=== PATIENT | male | born 1965 | race American Indian/Alaskan Native ===

== ENCOUNTER 2016-06-01 16:10 | Emergency (ER) | payer SELFPAY ==
[2016-06-01 16:39] VITALS: BP 156/105
[2016-06-01 18:09] LABS: Bilirubin,Urine NEG (Negative); Blood,Urine NEG (Negative); Ketones,Urine NEG (Negative); Leukocyte Esterase,Urine NEG (Negative); Mucus,Urine 1+ /HPF; Nitrite,Urine NEG (Negative); Protein,Urine <15 mg/dL mg/dL (Negative); Urobilinogen,Urine < 2.0 mg/dL (<2.0)
[2016-06-01] MEDS ORDERED: TYLENOL PO ONE (18:14)
--- NOTE | 2016-06-01 18:40 | Emergency Department Report ---
ED General Adult HPI - General Chief complaint: Back Pain/Injury Stated complaint: KIDNEY/BACK PAIN Time Seen by Provider: 06/01/16 17:36 Source: patient Mode of arrival: Ambulatory Limitations: No Limitations - History of Present Illness Initial comments: 50 year old male presents with right flank area pain for about a month. denies injury. states it is an aching pain. dysuria, NV, abdominal pain. Severity scale (0 -10): 10 - Related Data Previous Rx's Medication Instructions Recorded Last Taken Type Acetaminophen/Codeine [Tylenol #3] 1 tab PO Q6H PRN #14 tab 06/01/16 Unknown Rx Cyclobenzaprine [Flexeril] 10 mg PO TID PRN #14 tablet 06/01/16 Unknown Rx Allergies Allergy/AdvReac Type Severity Reaction Status Date / Time No Known Allergies Allergy Unverified 06/01/16 16:36 ED Review of Systems ROS: Stated complaint: KIDNEY/BACK PAIN Other details as noted in HPI Constitutional: denies: chills, fever Eyes: denies: eye pain, eye discharge, vision change ENT: denies: ear pain, throat pain Respiratory: denies: cough, shortness of breath, wheezing Cardiovascular: denies: chest pain, palpitations Endocrine: no symptoms reported Gastrointestinal: denies: abdominal pain, nausea, diarrhea Genitourinary: denies: urgency, dysuria Musculoskeletal: back pain. denies: joint swelling, arthralgia Skin: denies: rash, lesions Neurological: denies: headache, weakness, paresthesias Psychiatric: denies: anxiety, depression Hematological/Lymphatic: denies: easy bleeding, easy bruising ED Past Medical Hx - Past Medical History Previous Medical History?: Yes Hx Hypertension: Yes (no meds) - Surgical History Past Surgical History?: Yes Additional Surgical History: Tonsilectomy - Social History Smoking Status: Never Smoker Substance Use Type: Alcohol, Non Opiate Pain - Medications Home Medications: Home Medications Medication Instructions Recorded Confirmed Last Taken Type Acetaminophen/Codeine [Tylenol #3] 1 tab PO Q6H PRN #14 tab 06/01/16 Unknown Rx Cyclobenzaprine [Flexeril] 10 mg PO TID PRN #14 tablet 06/01/16 Unknown Rx ED Physical Exam - General Limitations: No Limitations General appearance: alert, in no apparent distress - Head Head exam: Present: atraumatic, normocephalic - Eye Eye exam: Present: normal appearance - ENT ENT exam: Present: mucous membranes moist - Neck Neck exam: Present: normal inspection - Respiratory Respiratory exam: Present: normal lung sounds bilaterally. Absent: respiratory distress - Cardiovascular Cardiovascular Exam: Present: regular rate, normal rhythm. Absent: systolic murmur, diastolic murmur, rubs, gallop - GI/Abdominal GI/Abdominal exam: Present: soft, normal bowel sounds - Rectal Rectal exam: Present: deferred - Extremities Exam Extremities exam: Present: normal inspection - Back Exam Back exam: Present: normal inspection, full ROM, CVA tenderness (R), paraspinal tenderness (right flank area.). Absent: muscle spasm, vertebral tenderness - Neurological Exam Neurological exam: Present: alert, oriented X3 - Psychiatric Psychiatric exam: Present: normal affect, normal mood - Skin Skin exam: Present: warm, dry, intact, normal color. Absent: rash ED Course Vital Signs 06/01/16 06/01/16 16:36 18:20 Temperature 98.8 F Pulse Rate 96 H Respiratory 20 22 Rate Blood Pressure 156/105 O2 Sat by Pulse 99 Oximetry ED Medical Decision Making - Lab Data Vital Signs 06/01/16 06/01/16 16:36 18:20 Temperature 98.8 F Pulse Rate 96 H Respiratory 20 22 Rate Blood Pressure 156/105 O2 Sat by Pulse 99 Oximetry Laboratory Results - last 24 hr 06/01/16 17:49 Urine Color Yellow Urine Turbidity Clear Urine pH 5.0 Ur Specific Magna 1.023 Urine Protein <15 mg/dl Urine Glucose (UA) Neg Urine Ketones Neg Urine Blood Neg Urine Nitrite Neg Urine Bilirubin Neg Urine Urobilinogen < 2.0 Ur Leukocyte Esterase Neg Urine WBC (Auto) 6.0 Urine RBC (Auto) 2.0 U Epithel Cells (Auto) < 1.0 Urine Mucus 1+ Critical care attestation.: If time is entered above; I have spent that time in minutes in the direct care of this critically ill patient, excluding procedure time. ED Disposition Clinical Impression: Strain of thoracic region, Right flank pain Disposition: DISCHARGED TO HOME OR SELFCARE Is pt being admited?: No Does the pt Need Aspirin: No Condition: Good Instructions: Muscle Strain (ED) Prescriptions: Acetaminophen/Codeine [Tylenol #3] 1 tab PO Q6H PRN #14 tab PRN Reason: Pain Cyclobenzaprine [Flexeril] 10 mg PO TID PRN #14 tablet PRN Reason: Muscle Spasm Referrals: PRIMARY CARE,MD [Primary Care Provider] - 3-5 Days Time of Disposition: 18:40
== END 2016-06-01 19:00 | disposition home or self-care (01) ==
LOC: ED 16:10
DX: S29.012A Strain of muscle and tendon of back wall of thorax, initial encounter (principal); R10.30 Lower abdominal pain, unspecified; I10 Essential (primary) hypertension; X58.XXXA Exposure to other specified factors, initial encounter; Y93.9 Activity, unspecified; Y92.9 Unspecified place or not applicable; Y99.9 Unspecified external cause status
CPT/HCPCS: 81001; 99283

== ENCOUNTER 2017-11-19 08:11 | Emergency (ER) | payer SELFPAY ==
[2017-11-19] MEDS ORDERED: SOLU-Medrol IM ONE (08:46)
--- NOTE | 2017-11-19 08:46 | Emergency Department Report ---
ED Allergic Reaction HPI - General Chief complaint: Allergic Reaction Stated complaint: ALLERGIC REACTION Time Seen by Provider: 11/19/17 08:26 Source: patient, family Mode of arrival: Ambulatory Limitations: No Limitations - History of Present Illness Initial Comments: This is a 51-year-old male here report that he is having allergic reaction to facial areas around her eyes that started yesterday. He denies any itching in reports swelling to facial area around eyes. Denies any shortness of breath, swelling of tongue or lips. Denies difficulty swallowing or breathing. Denies any stridor or wheezing. Denies any chest pain or difficulty speaking. Patient has a history of high blood pressure and his blood pressure is 187/104 in triage area denies any headache, blurred vision, dizziness. He denies any facial pain and pain scale is 0-10. Patient believed that he used the hair dye to darkness urine Sunday and this started after he used the hair dye. MD Complaint: allergic reaction, facial swelling Onset/Timin -: days(s) Exposure: other Symptoms: facial swelling Treatment Prior to Arrival: none Previous Allergy History: none - Related Data Previous Rx's Medication Instructions Recorded Last Taken Type Acetaminophen/Codeine [Tylenol #3] 1 tab PO Q6H PRN #14 tab 06/01/16 Unknown Rx Cyclobenzaprine [Flexeril] 10 mg PO TID PRN #14 tablet 06/01/16 Unknown Rx Prednisone [predniSONE 5 mg (6-Day 5 mg PO .TAPER #1 tab.ds.pk 11/19/17 Unknown Rx Pack, 21 Tabs)] diphenhydrAMINE [Benadryl CAP] 50 mg PO BID PRN #10 capsule 11/19/17 Unknown Rx Allergies Allergy/AdvReac Type Severity Reaction Status Date / Time No Known Allergies Allergy Verified 11/19/17 08:15 ED Review of Systems ROS: Stated complaint: ALLERGIC REACTION Other details as noted in HPI Constitutional: denies: chills, fever Eyes: denies: eye pain, eye discharge, vision change ENT: other (swelling facial area suspect from here dye). denies: ear pain, throat pain, epistaxis, congestion Respiratory: denies: cough, shortness of breath, SOB with exertion, SOB at rest , stridor, wheezing Cardiovascular: denies: chest pain, palpitations, edema, syncope Gastrointestinal: denies: abdominal pain, nausea, vomiting, diarrhea, constipation, hematemesis, melena, hematochezia Musculoskeletal: denies: back pain, joint swelling, arthralgia, myalgia Skin: other (mild erythema and swelling to facial area). denies: rash, lesions Neurological: denies: headache ED Past Medical Hx - Past Medical History Previous Medical History?: Yes Hx Hypertension: Yes (no meds) - Surgical History Past Surgical History?: Yes Additional Surgical History: Tonsilectomy - Family History Family history: hypertension - Social History Smoking Status: Never Smoker Substance Use Type: None - Medications Home Medications: Home Medications Medication Instructions Recorded Confirmed Last Taken Type Acetaminophen/Codeine [Tylenol #3] 1 tab PO Q6H PRN #14 tab 06/01/16 Unknown Rx Cyclobenzaprine [Flexeril] 10 mg PO TID PRN #14 tablet 06/01/16 Unknown Rx Prednisone [predniSONE 5 mg (6-Day 5 mg PO .TAPER #1 tab.ds.pk 11/19/17 Unknown Rx Pack, 21 Tabs)] diphenhydrAMINE [Benadryl CAP] 50 mg PO BID PRN #10 capsule 11/19/17 Unknown Rx ED Physical Exam - General Limitations: No Limitations General appearance: alert, in no apparent distress - Head Head exam: Present: atraumatic, normocephalic, normal inspection, other (normal exam) - Eye Eye exam: Present: normal appearance, PERRL, EOMI. Absent: nystagmus, periorbital swelling, periorbital tenderness Pupils: Present: normal accommodation - ENT ENT exam: Present: normal exam, normal orophraynx, mucous membranes moist, TM's normal bilaterally, normal external ear exam, other (patient with mild swelling to the facial area below eyes mild erythema.Involvement. Nontender to palpate) - Expanded ENT Exam Expanded Mouth exam: Present: normal external inspection, tongue normal. Absent: drooling, trismus, muffled voice, tongue elevation, laceration, other Teeth exam: Present: normal inspection Throat exam: Positive: normal inspection - Neck Neck exam: Present: normal inspection, full ROM. Absent: tenderness, meningismus, lymphadenopathy - Respiratory Respiratory exam: Present: normal lung sounds bilaterally. Absent: respiratory distress, wheezes, rales, rhonchi, stridor, chest wall tenderness, accessory muscle use - Cardiovascular Cardiovascular Exam: Present: regular rate, normal rhythm, normal heart sounds. Absent: systolic murmur, diastolic murmur - GI/Abdominal GI/Abdominal exam: Present: soft, normal bowel sounds. Absent: tenderness - Extremities Exam Extremities exam: Present: normal inspection, full ROM, normal capillary refill , other (No cce. + 2 pulses in all extremities, no neurovascular compromise). Absent: tenderness, pedal edema, joint swelling, calf tenderness - Back Exam Back exam: Present: normal inspection, full ROM, other (tablets without any difficulties). Absent: tenderness, CVA tenderness (R), CVA tenderness (L), muscle spasm, paraspinal tenderness, vertebral tenderness, rash noted - Neurological Exam Neurological exam: Present: alert, oriented X3, normal gait - Psychiatric Psychiatric exam: Present: normal affect, normal mood - Skin Skin exam: Present: warm, dry, intact, normal color, rash (mild swelling and erythema below eyes, urticarial in nature. Denies any itch.), erythema ED Course Vital Signs 11/19/17 11/19/17 08:16 09:15 Temperature 98.3 F Pulse Rate 86 Respiratory 20 Rate Blood Pressure 187/104 Blood Pressure 150/92 [Left] O2 Sat by Pulse 98 Oximetry - Reevaluation(s) Reevaluation #1: 11/19/17 09:19 given Solu-Medrol 125 mg IM and emergency room with resolution of swelling. Very minimal swelling below eyes. ED Medical Decision Making - Medical Decision Making This is a 51-year-old morbidly obese male in no acute distress. He presented to the emergency room today reports that he has swollen below his eyes to his facial area and both sides that started 2 days ago after he used a hair dye. He is here for evaluation She was seen and examined by myself and found to have minor localized allergic reaction to facial area bilaterally. Minimal erythema with minimal swelling that appears urticarial in nature all other physical exams to include cardiovascular, lungs, skin, neck, mouth etc. is normal patient was given Solu- Medrol 125 mg I am emergency room with moderate resolution of swelling and redness. I discussed the patient is diagnosis and treatment plan. I also explained to him that he cannot use offending agents anymore. I discussed with him that if symptoms worsens to include cough and, swollen throat, neck, tongue , increase facial swelling, difficulty breathing, wheezing and to return to the emergency room GABRIEL otherwise follow-up with his primary care physician tomorrow A/P Minor allergic reaction, facial-Solumedrol 125 mg IM even 1 and patient will be placed on Benadryl when necessary and prednisone Dosepak. PT discharged home in stable condition to follow up with his primary care physician tomorrow. Prescription for prednisone Dosepak and Benadryl when necessary. Vital signs are stable, swelling and redness resolved.. Critical care attestation.: If time is entered above; I have spent that time in minutes in the direct care of this critically ill patient, excluding procedure time. ED Disposition Clinical Impression: Swelling of face Allergic reaction to dye Qualifiers: Encounter type: initial encounter Qualified Code(s): T50.995A - Adverse effect of other drugs, medicaments and biological substances, initial encounter Disposition: TO HOME OR SELFCARE Is pt being admited?: No Does the pt Need Aspirin: No Condition: Stable Instructions: Antihistamine (By mouth), Allergies (ED) Additional Instructions: Please follow-up with private care physician tomorrow Please give medication as prescribed You can take benadryl 50 mg QHS as needed take prednisone as prescribed If you develop, recurrent rash, cough, wheezing, difficulty breathing and swallowing, swelling of tongue and neck and/or stridor please return to the emergency room GABRIEL otherwise follow-up a year overhauler and if needed they will refer you to pediatrics dermatologists for allergy skin testing. Prescriptions: diphenhydrAMINE [Benadryl CAP] 50 mg PO BID PRN #10 capsule PRN Reason: Allergic Reaction Prednisone [predniSONE 5 mg (6-Day Pack, 21 Tabs)] 5 mg PO .TAPER #1 tab.ds.pk Referrals: PRIMARY CARE, [Primary Care Provider] - 11/20/17 [facility] [Outside] - 11/20/17 Forms: Accompanied Note, Work/School Release Form(ED)
[2017-11-19 09:15] VITALS: BP 150/92
== END 2017-11-19 09:37 | disposition home or self-care (01) ==
LOC: ED 08:11
DX: T50.995A Adverse effect of other drugs, medicaments and biological substances, initial encounter (principal); R22.0 Localized swelling, mass and lump, head; I10 Essential (primary) hypertension; Z90.89 Acquired absence of other organs; Y92.89 Other specified places as the place of occurrence of the external cause
CPT/HCPCS: 96372; 99282; J2930

== ENCOUNTER 2018-07-05 04:02 | Emergency (ER) | payer SELFPAY ==
[2018-07-05 04:37] VITALS: BP 150/93
== END 2018-07-05 08:57 | disposition left against medical advice (07) ==
LOC: ED 04:02
DX: M25.571 Pain in right ankle and joints of right foot (principal); Z53.21 Procedure and treatment not carried out due to patient leaving prior to being seen by health care provider